=== PATIENT | male | born 1965 | race Caucasian/White ===

== ENCOUNTER 2017-08-11 10:36 | Emergency (ER) | payer MEDICAID ==
[~2017-08-11] VITALS: Ht 170.2 cm; Wt 86.2 kg
[2017-08-11 10:41] VITALS: Ht 170.2 cm; Wt 86.2 kg
[2017-08-11 12:01] VITALS: BP 141/101
== END 2017-08-11 12:20 | disposition home or self-care (01) ==
LOC: ED 10:36
DX: R09.89 Other specified symptoms and signs involving the circulatory and respiratory systems (principal); E11.9 Type 2 diabetes mellitus without complications; R03.0 Elevated blood-pressure reading, without diagnosis of hypertension